=== PATIENT | female | born 2000 | race Caucasian/White ===

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

== ENCOUNTER 2019-03-13 09:51 | Emergency (ER) | payer SELFPAY ==
[~2019-03-13] VITALS: Ht 162.5 cm; Wt 79.4 kg
[~2019-03-13 09:51] MED LIST changes: +PROVENTIL HFA6.7 GM INH
[2019-03-13 09:54] VITALS: BP 117/61
[2019-03-13] MEDS ORDERED: NAPROSYN500 MG PO (11:33)
[2019-03-13] MEDS ORDERED: MEDROL DOSEPAK4 MG PO (11:33)
== END 2019-03-13 11:36 | disposition home or self-care (01) ==
LOC: ED 09:51
DX: S39.012A Strain of muscle, fascia and tendon of lower back, initial encounter (principal); V89.2XXA Person injured in unspecified motor-vehicle accident, traffic, initial encounter; Y93.I9 Activity, other involving external motion; Y92.488 Other paved roadways as the place of occurrence of the external cause; Y99.8 Other external cause status

== ENCOUNTER 2019-07-30 17:38 | Emergency (ER) | payer SELFPAY ==
[~2019-07-30] VITALS: Ht 162.5 cm; Wt 81.6 kg
[~2019-07-30 17:38] MED LIST changes: +MEDROL DOSEPAK4 MG PO; +NAPROSYN500 MG PO
[2019-07-30 18:47] LABS: BACTERIA 1+; BILIRUBIN NEGATIVE (NEGATIVE); BLOOD NEGATIVE (NEGATIVE); CALCIUM OXALATE CRYSTALS 2+; CLARITY CLEAR (CLEAR); COLOR YELLOW (YELLOW); GLUCOSE NEGATIVE (NEGATIVE); KETONE NEGATIVE (NEGATIVE); LEUKO ESTERASE 2+ (NEGATIVE); NITRITE NEGATIVE (NEGATIVE); PH 5.5 (5.0-9.0); RBC 0-2 rbc/hpf (0-2); UROBILINOGEN 0.2 E.U./dl (0.2-1.0)
[2019-07-30 18:54] LABS: HEMATOCRIT 44.2 % (37.0-47.0); MEAN CELL VOLUME 85.2 fl (81.0-99.0); MEAN CORPUSCULAR HGB 26.6 pg (27.0-31.0); MEAN CORPUSCULAR HGB CONC 31.2 g/dl (33.0-37.0); MEAN PLATELET VOLUME 10.5 fl (9.6-12.3); PLATELET COUNT AUTOMATED 373 10*3/uL (130-400); RED BLOOD COUNT 5.19 10*6/uL (4.10-5.10); RED CELL DISTRI WIDTH 14.2 % (0-14.5); WHITE BLOOD COUNT 13.8 10*3/uL (4.8-10.8)
[2019-07-30 19:10] LABS: ALBUMIN 3.6 gm/dl (3.1-4.5); ALKALINE PHOSPHATASE 82 U/L (45-117); BUN 8 mg/dl (7-24); CHLORIDE 110 mmol/L (98-107); CREATININE 0.72 mg/dL (0.55-1.02); POTASSIUM 3.6 mmol/L (3.5-5.1); SGOT/AST 30 IU/L (3-35); SGPT/ALT 45 U/L (12-78); SODIUM 140 mmol/L (136-145); TOTAL PROTEIN 7.2 gm/dL (6.4-8.2)
[2019-07-30 19:14] LABS: BETA-HCG, QUANT < 1.0 mIU/mL (1-3)
[2019-07-30 19:24] LABS: ATYPICAL LYMPHS 3 % (0-0); TOTAL CELLS COUNTED 100 #CELLS
[2019-07-30 19:25] LABS: PLATELET SUFFICIENCY NORMAL (NORMAL)
[2019-07-30 19:45] VITALS: BP 129/70
[2019-07-31 22:03] LABS: GONOCOCCUS BY NAA Negative (Negative)
== END 2019-07-30 19:50 | disposition home or self-care (01) ==
LOC: ED 17:38
PROVIDERS: Physician Assistant
DX: R10.2 Pelvic and perineal pain (principal); Z79.899 Other long term (current) drug therapy; Z79.84 Long term (current) use of oral hypoglycemic drugs

== ENCOUNTER 2020-01-08 05:49 | Observation (INO) | payer MEDICAID ==
[~2020-01-08] VITALS: Ht 165.1 cm; Wt 93.0 kg
[2020-01-08 13:03] VITALS: BP 108/56
--- NOTE | 2020-01-08 17:30 | NUR ---
PT REQUESTING TO SIGN OUT AMA, RESIDENT AWARE.
== END 2020-01-08 17:30 | disposition left against medical advice (07) ==
LOC: ED 05:49 → EDHOLD 11:30
PROVIDERS: ADMIT Internal Medicine; ATTEND Internal Medicine
DX: R10.31 Right lower quadrant pain (principal); A41.9 Sepsis, unspecified organism; D72.829 Elevated white blood cell count, unspecified; K52.9 Noninfective gastroenteritis and colitis, unspecified; R00.0 Tachycardia, unspecified; K38.8 Other specified diseases of appendix; D72.820 Lymphocytosis (symptomatic); R73.03 Prediabetes; R79.89 Other specified abnormal findings of blood chemistry; F17.210 Nicotine dependence, cigarettes, uncomplicated; E66.9 Obesity, unspecified; Z68.34 Body mass index [BMI] 34.0-34.9, adult

== ENCOUNTER 2020-07-10 15:30 | Emergency (ER) | payer MEDICAID ==
[~2020-07-10] VITALS: Wt 93.0 kg
[~2020-07-10 15:30] MED LIST changes: +AZITHROMYCIN500 M2 PO
[2020-07-10 15:37] VITALS: BP 137/93
[2020-07-10] MEDS ORDERED: AUGMENTIN 875-875 MG PO (16:08)
[2020-07-10] MEDS ORDERED: IBU800 MG PO (16:08)
== END 2020-07-10 16:37 | disposition home or self-care (01) ==
LOC: ED 15:30
DX: K02.9 Dental caries, unspecified (principal); K04.7 Periapical abscess without sinus; K08.89 Other specified disorders of teeth and supporting structures; Z79.899 Other long term (current) drug therapy; Z98.890 Other specified postprocedural states

== ENCOUNTER 2020-07-12 04:59 | Emergency (ER) | payer MEDICAID ==
[~2020-07-12] VITALS: Ht 162.5 cm; Wt 93.0 kg
[~2020-07-12 04:59] MED LIST changes: +AUGMENTIN 875-875 MG PO; +IBU800 MG PO
[2020-07-12 05:08] VITALS: BP 144/88
[2020-07-12] MEDS ORDERED: AMOXICILLIN500 M2 PO (06:18)
== END 2020-07-12 06:37 | disposition home or self-care (01) ==
LOC: ED 04:59
DX: K08.89 Other specified disorders of teeth and supporting structures (principal); F41.9 Anxiety disorder, unspecified; K21.9 Gastro-esophageal reflux disease without esophagitis; Z79.899 Other long term (current) drug therapy

== ENCOUNTER 2020-10-21 14:58 | Emergency (ER) | payer MEDICAID ==
[~2020-10-21] VITALS: Wt 90.7 kg
[~2020-10-21 14:58] MED LIST changes: +AMOXICILLIN500 M2 PO
[2020-10-21 15:15] VITALS: BP 121/73
[2020-10-21] MEDS ORDERED: MEDROL DOSEPAK4 MG PO (15:35)
[2020-10-21] MEDS ORDERED: CYCLOBENZAPRINE5 M3 PO (15:35)
== END 2020-10-21 15:38 | disposition home or self-care (01) ==
LOC: ED 14:58
DX: M54.12 Radiculopathy, cervical region (principal); F17.200 Nicotine dependence, unspecified, uncomplicated; Z79.2 Long term (current) use of antibiotics; Z79.899 Other long term (current) drug therapy; Z90.89 Acquired absence of other organs

== ENCOUNTER 2021-09-17 19:27 | Emergency (ER) | payer MEDICAID ==
[~2021-09-17] VITALS: Ht 167.6 cm; Wt 81.6 kg
[2021-09-17 19:35] VITALS: BP 158/77
[2021-09-17] MEDS ORDERED: PREDNISONE50 MG PO (20:11)
== END 2021-09-17 20:25 | disposition home or self-care (01) ==
LOC: ED 19:27
DX: S86.911A Strain of unspecified muscle(s) and tendon(s) at lower leg level, right leg, initial encounter (principal); Z79.899 Other long term (current) drug therapy; Z90.89 Acquired absence of other organs; Z87.891 Personal history of nicotine dependence; X58.XXXA Exposure to other specified factors, initial encounter; Y93.89 Activity, other specified; Y92.89 Other specified places as the place of occurrence of the external cause; Y99.8 Other external cause status

== ENCOUNTER 2021-09-18 18:02 | Emergency (ER) | payer MEDICAID ==
[~2021-09-18] VITALS: Wt 81.6 kg
[2021-09-18 18:47] VITALS: BP 108/71
== END 2021-09-18 20:47 | disposition home or self-care (01) ==
LOC: ED 18:02
DX: M79.604 Pain in right leg (principal); M25.561 Pain in right knee; Z79.899 Other long term (current) drug therapy; Z90.89 Acquired absence of other organs; F17.200 Nicotine dependence, unspecified, uncomplicated

== ENCOUNTER 2021-10-25 12:02 | Emergency (ER) | payer MEDICAID ==
[~2021-10-25] VITALS: Wt 90.7 kg
[2021-10-25 12:19] VITALS: BP 111/55
[2021-10-25 12:38] LABS: BILIRUBIN Negative (Negative); BLOOD Negative (Negative); CLARITY Clear (Clear); COLOR Yellow (Yellow); GLUCOSE Negative (Negative); KETONE Negative (Negative); LEUKO ESTERASE 1+ (Negative); NITRITE Negative (Negative); PH 6.5 (4.5-8.0); UROBILINOGEN 0.2 E.U./dl (0.0-1.0)
[2021-10-25 12:51] LABS: BACTERIA 2+
== END 2021-10-25 14:10 | disposition home or self-care (01) ==
LOC: ED 12:02
PROVIDERS: Emergency Medicine
DX: R11.0 Nausea (principal); R42 Dizziness and giddiness; R51.9 Headache, unspecified; Z79.899 Other long term (current) drug therapy

== ENCOUNTER 2021-11-30 04:53 | Emergency (ER) | payer OTHER, MEDICAID ==
[~2021-11-30] VITALS: Wt 92.4 kg
[2021-11-30 07:30] VITALS: BP 115/64
== END 2021-11-30 16:36 | disposition home or self-care (01) ==
LOC: ED 04:53
DX: S16.1XXA Strain of muscle, fascia and tendon at neck level, initial encounter (principal); F31.9 Bipolar disorder, unspecified; K21.9 Gastro-esophageal reflux disease without esophagitis; E66.9 Obesity, unspecified; F17.210 Nicotine dependence, cigarettes, uncomplicated; Z68.30 Body mass index [BMI] 30.0-30.9, adult; Z90.89 Acquired absence of other organs; V89.2XXA Person injured in unspecified motor-vehicle accident, traffic, initial encounter; Y93.I9 Activity, other involving external motion; Y92.488 Other paved roadways as the place of occurrence of the external cause; Y99.8 Other external cause status

== ENCOUNTER 2022-01-12 18:13 | Emergency (ER) | payer MEDICAID ==
[~2022-01-12] VITALS: Ht 162.5 cm; Wt 81.6 kg
[2022-01-12 18:49] VITALS: BP 126/74
[2022-01-12 20:34] LABS: BILIRUBIN Negative (Negative); BLOOD Negative (Negative); CLARITY Clear (Clear); COLOR Yellow (Yellow); GLUCOSE Negative (Negative); KETONE Negative (Negative); LEUKO ESTERASE Negative (Negative); NITRITE Negative (Negative); UROBILINOGEN 0.2 E.U./dl (0.0-1.0)
[2022-01-12 20:56] LABS: BACTERIA 1+; EPITHELIAL CELLS 16-20; WBC 0-2 wbc/hpf (0-5)
[2022-01-12] MEDS ORDERED: NAPROXEN250 MG PO (21:03)
[2022-01-12] MEDS ORDERED: METHOCARBAMOL500 M1 PO (21:03)
== END 2022-01-12 21:20 | disposition home or self-care (01) ==
LOC: ED 18:13
PROVIDERS: Internal Medicine
DX: M54.50 Low back pain, unspecified (principal); Z90.89 Acquired absence of other organs; Z87.891 Personal history of nicotine dependence

== ENCOUNTER 2022-02-13 02:18 | Emergency (ER) | payer MEDICAID ==
[~2022-02-13] VITALS: Ht 162.5 cm; Wt 81.6 kg
[~2022-02-13 02:18] MED LIST changes: +METHOCARBAMOL500 M1 PO; +NAPROXEN250 MG PO
[2022-02-13 02:45] VITALS: BP 126/69
[2022-02-13] MEDS ORDERED: TAMIFLU 75MG CA75 MG PO (05:03)
== END 2022-02-13 05:21 | disposition home or self-care (01) ==
LOC: ED 02:18
DX: J10.1 Influenza due to other identified influenza virus with other respiratory manifestations (principal); Z20.822 Contact with and (suspected) exposure to COVID-19; F17.210 Nicotine dependence, cigarettes, uncomplicated; K21.9 Gastro-esophageal reflux disease without esophagitis; Z90.89 Acquired absence of other organs

== ENCOUNTER 2022-06-07 22:45 | Emergency (ER) | payer MEDICAID ==
[~2022-06-07] VITALS: Ht 165.1 cm; Wt 81.6 kg
[~2022-06-07 22:45] MED LIST changes: +TAMIFLU 75MG CA75 MG PO
[2022-06-07 22:52] VITALS: BP 140/70
[2022-06-07 23:17] LABS: BASO % 0.2 % (0.0-1.0); EOS % 0.1 % (1.0-4.0); HEMATOCRIT 43.4 % (37.0-47.0); LYMPH % 23.8 % (27.0-41.0); MEAN CELL VOLUME 83.8 fl (81.0-99.0); MEAN CORPUSCULAR HGB 26.4 pg (27.0-31.0); MEAN CORPUSCULAR HGB CONC 31.6 g/dl (33.0-37.0); MEAN PLATELET VOLUME 9.9 fl (9.6-12.3); MONO # 0.5 10*3/uL (0.1-1.0); NEUT % 71.7 % (47.0-73.0); PLATELET COUNT AUTOMATED 389 10*3/uL (130-400); RED BLOOD COUNT 5.18 10*6/uL (4.10-5.10); RED CELL DISTRI WIDTH 14.2 % (0-14.5); WHITE BLOOD COUNT 12.6 10*3/uL (4.8-10.8)
[2022-06-07 23:32] LABS: ALKALINE PHOSPHATASE 69 U/L (46-116); BUN 7 mg/dl (9-23); CHLORIDE 104 mmol/L (98-107); POTASSIUM 4.1 mmol/L (3.4-5.1); SGPT/ALT 27 U/L (10-49); TOTAL PROTEIN 7.5 gm/dL (6.0-8.0)
[2022-06-07 23:40] LABS: BILIRUBIN Negative (Negative); BLOOD 2+ (Negative); CLARITY Clear (Clear); COLOR Yellow (Yellow); GLUCOSE 3+ (Negative); KETONE Negative (Negative); LEUKO ESTERASE Negative (Negative); NITRITE Negative (Negative); PH 6.5 (4.5-8.0); SPECIFIC GRAVITY 1.025 (1.001-1.030); UROBILINOGEN 0.2 E.U./dl (0.0-1.0)
[2022-06-08 00:31] LABS: RBC 21-30 rbc/hpf (0-2)
== END 2022-06-08 02:59 | disposition home or self-care (01) ==
LOC: ED 22:45
PROVIDERS: Emergency Medicine
DX: E11.65 Type 2 diabetes mellitus with hyperglycemia (principal); T78.49XA Other allergy, initial encounter; X58.XXXA Exposure to other specified factors, initial encounter; Z90.89 Acquired absence of other organs; F17.200 Nicotine dependence, unspecified, uncomplicated; Z79.899 Other long term (current) drug therapy

== ENCOUNTER 2022-08-04 01:25 | Emergency (ER) | payer MEDICAID ==
[~2022-08-04] VITALS: Wt 91.6 kg
[2022-08-04 01:33] VITALS: BP 129/58
[2022-08-04 01:56] LABS: BILIRUBIN Negative (Negative); BLOOD Negative (Negative); CLARITY Clear (Clear); COLOR Yellow (Yellow); GLUCOSE Negative (Negative); KETONE Negative (Negative); LEUKO ESTERASE Negative (Negative); NITRITE Negative (Negative)
[2022-08-04] MEDS ORDERED: MIRALAX POWDER17 G1 PO (02:16)
== END 2022-08-04 02:29 | disposition home or self-care (01) ==
LOC: ED 01:25
PROVIDERS: Internal Medicine
DX: R10.30 Lower abdominal pain, unspecified (principal); R11.0 Nausea; Z90.89 Acquired absence of other organs; F17.200 Nicotine dependence, unspecified, uncomplicated

== ENCOUNTER 2022-08-19 05:29 | Emergency (ER) | payer MEDICAID ==
[~2022-08-19] VITALS: Ht 162.5 cm; Wt 81.6 kg
[2022-08-19 05:29] VITALS: BP 126/68
== END 2022-08-19 06:48 | disposition home or self-care (01) ==
LOC: ED 05:29
DX: L29.9 Pruritus, unspecified (principal); E87.8 Other disorders of electrolyte and fluid balance, not elsewhere classified; R73.9 Hyperglycemia, unspecified; K21.9 Gastro-esophageal reflux disease without esophagitis; Z90.89 Acquired absence of other organs; F17.200 Nicotine dependence, unspecified, uncomplicated

== ENCOUNTER 2023-06-04 22:13 | Emergency (ER) | payer SELFPAY ==
[~2023-06-04] VITALS: Ht 154.9 cm; Wt 81.6 kg
[~2023-06-04 22:13] MED LIST changes: +AMOX-CLAV 875-1 EACH PO; +MELOXICAM15 MG PO
[2023-06-04 22:18] VITALS: BP 137/78
[2023-06-04] MEDS ORDERED: PENICILLIN VK500 MG PO (22:51)
[2023-06-04] MEDS ORDERED: Motrin,Rufen800 MG PO (22:51)
[2023-06-04] MEDS ORDERED: BENZOCAINE 20% 11.9 GM GEL T STA (22:52)
[2023-06-04] MEDS ORDERED: Lidocaine Hydrochloride 15 ML UDC PO STA (22:52)
[2023-06-04] MEDS ORDERED: PENICILLIN V POTASSIUM 500 MG TAB PO ONE (22:55)
[2023-06-04] MEDS ORDERED: Ketorolac Tromethamine 60 MG/2 ML VIAL IM ONE (22:55)
== END 2023-06-04 23:11 | disposition home or self-care (01) ==
LOC: ED 22:13
DX: K04.7 Periapical abscess without sinus (principal); K02.9 Dental caries, unspecified; E78.00 Pure hypercholesterolemia, unspecified; R73.9 Hyperglycemia, unspecified; K21.9 Gastro-esophageal reflux disease without esophagitis; F41.9 Anxiety disorder, unspecified; Z90.89 Acquired absence of other organs; F17.200 Nicotine dependence, unspecified, uncomplicated

== ENCOUNTER 2023-07-14 21:19 | Emergency (ER) | payer SELFPAY ==
[~2023-07-14] VITALS: Ht 162.5 cm; Wt 83.9 kg
[~2023-07-14 21:19] MED LIST changes: +PENICILLIN VK500 MG PO
[2023-07-14 22:09] LABS: BILIRUBIN Negative (Negative); BLOOD Negative (Negative); CLARITY Clear (Clear); COLOR Yellow (Yellow); GLUCOSE 3+ (Negative); KETONE Trace (Negative); LEUKO ESTERASE Negative (Negative); NITRITE Negative (Negative); PH 6.5 (4.5-8.0); SPECIFIC GRAVITY >= 1.030 (1.001-1.030)
[2023-07-14 22:25] LABS: RBC 0-2 rbc/hpf (0-2); WBC 0-2 wbc/hpf (0-5)
[2023-07-14 22:56] LABS: HEMATOCRIT 39.2 % (37.0-47.0); MEAN CORPUSCULAR HGB 27.3 pg (27.0-31.0); MEAN CORPUSCULAR HGB CONC 32.1 g/dl (33.0-37.0); PLATELET COUNT AUTOMATED 270 10*3/uL (130-400); RED BLOOD COUNT 4.61 10*6/uL (4.10-5.10); WHITE BLOOD COUNT 9.9 10*3/uL (4.8-10.8)
[2023-07-14 22:59] LABS: MANUAL DIFF REFLEX YES
[2023-07-14 23:15] LABS: ALKALINE PHOSPHATASE 71 U/L (46-116); BUN 9 mg/dl (9-23); CHLORIDE 104 mmol/L (98-107); LIPASE 52 U/L (12-53); POTASSIUM 3.9 mmol/L (3.4-5.1); SGPT/ALT 41 U/L (5-49); TOTAL PROTEIN 6.2 gm/dL (6.0-8.0)
[2023-07-14 23:25] LABS: PLATELET SUFFICIENCY NORMAL (NORMAL); TOTAL CELLS COUNTED 100 #CELLS
[2023-07-14] MEDS ORDERED: SODIUM CHLORIDE 0.9% 1,000 ML IV ONE (23:50)
[2023-07-14] MEDS ORDERED: IOHEXOL 300 MG/ML 100 ML VIAL IV ONE (23:55)
[2023-07-15 02:30] VITALS: BP 124/68
== END 2023-07-15 03:50 | disposition home or self-care (01) ==
LOC: ED 21:19
PROVIDERS: Emergency Medicine
DX: R10.11 Right upper quadrant pain (principal); E11.9 Type 2 diabetes mellitus without complications; F17.200 Nicotine dependence, unspecified, uncomplicated

== ENCOUNTER → 2023-10-22 | Outpatient (CLI) | payer MEDICAID | END | disposition home or self-care (01) | LOC: RAD 10:25 | PROVIDERS: ATTEND Nurse Practitioner | DX: K59.09 Other constipation (principal); R10.84 Generalized abdominal pain ==

== ENCOUNTER → 2023-11-07 | Outpatient (CLI) | payer MEDICAID | END | disposition home or self-care (01) | LOC: US 10:00 | PROVIDERS: ATTEND Nurse Practitioner | DX: K80.20 Calculus of gallbladder without cholecystitis without obstruction (principal); K76.0 Fatty (change of) liver, not elsewhere classified; R10.84 Generalized abdominal pain ==

== ENCOUNTER → 2023-12-12 | Outpatient (CLI) | payer MEDICAID ==
[~2023-12-12] MED LIST changes: +PROTONIX40 MG PO; +SINCALIDE 5 MCG VIAL IV SCH; +SINCALIDE IV ONE; +SODIUM CHLORIDE 0.9% IV ONE; +Technetium Tc 99M Mebrofenin 1 KIT KIT IV SCH
== END | disposition home or self-care (01) ==
LOC: NM 02:18
PROVIDERS: ATTEND Nurse Practitioner
DX: K80.20 Calculus of gallbladder without cholecystitis without obstruction (principal); R10.11 Right upper quadrant pain; R11.0 Nausea; E11.9 Type 2 diabetes mellitus without complications; I10 Essential (primary) hypertension

== ENCOUNTER 2023-12-18 20:42 | Emergency (ER) | payer MEDICAID ==
[~2023-12-18] VITALS: Ht 162.5 cm; Wt 93.0 kg
[~2023-12-18 20:42] MED LIST changes: -PROTONIX40 MG PO; -SINCALIDE 5 MCG VIAL IV SCH; -SINCALIDE IV ONE; -SODIUM CHLORIDE 0.9% IV ONE; -Technetium Tc 99M Mebrofenin 1 KIT KIT IV SCH
[2023-12-18 20:52] VITALS: BP 145/77
[2023-12-18 21:48] LABS: BILIRUBIN Negative (Negative); BLOOD 2+ (Negative); CLARITY Clear (Clear); COLOR Yellow (Yellow); GLUCOSE 3+ (Negative); KETONE Trace (Negative); LEUKO ESTERASE Negative (Negative); NITRITE Negative (Negative); SPECIFIC GRAVITY >= 1.030 (1.001-1.030)
[2023-12-18 22:00] LABS: BACTERIA 1+; WBC 0-2 wbc/hpf (0-5)
[2023-12-18 22:05] LABS: HEMATOCRIT 41.9 % (37.0-47.0); MEAN CELL VOLUME 85.5 fl (81.0-99.0); MEAN CORPUSCULAR HGB 27.1 pg (27.0-31.0); MEAN CORPUSCULAR HGB CONC 31.7 g/dl (33.0-37.0); PLATELET COUNT AUTOMATED 307 10*3/uL (130-400); RED CELL DISTRI WIDTH 13.7 % (0-14.5); WHITE BLOOD COUNT 11.8 10*3/uL (4.8-10.8)
[2023-12-18 22:10] LABS: MANUAL DIFF REFLEX YES
[2023-12-18 22:27] LABS: ALKALINE PHOSPHATASE 72 U/L (46-116); BUN 6 mg/dl (9-23); CHLORIDE 105 mmol/L (98-107); LIPASE 42 U/L (12-53); PLATELET SUFFICIENCY NORMAL (NORMAL); POTASSIUM 3.7 mmol/L (3.4-5.1); SGPT/ALT 52 U/L (5-49); TOTAL CELLS COUNTED 100 #CELLS; TOTAL PROTEIN 6.9 gm/dL (6.0-8.0)
[2023-12-18] MEDS ORDERED: PROTONIX40 MG PO (23:02)
== END 2023-12-18 23:16 | disposition home or self-care (01) ==
LOC: ED 20:42
PROVIDERS: Nurse Practitioner Family
DX: R10.12 Left upper quadrant pain (principal); R79.89 Other specified abnormal findings of blood chemistry; F41.9 Anxiety disorder, unspecified; K21.9 Gastro-esophageal reflux disease without esophagitis; E78.00 Pure hypercholesterolemia, unspecified; E11.65 Type 2 diabetes mellitus with hyperglycemia; F17.200 Nicotine dependence, unspecified, uncomplicated; Z90.89 Acquired absence of other organs